=== PATIENT | male | born 1990 | race Caucasian/White ===

== ENCOUNTER 2017-08-31 10:09 | Emergency (ER) | payer SELFPAY ==
[2017-08-31 10:16] VITALS: BP 134/81; BMI 28.7
--- NOTE | 2017-08-31 11:00 | DR.GENAD ---
HPI - PCP Primary Care Physician: JAVIER Oconnell HPI Comment HPI Comment: close contact with flu - Complaint/Symptoms Chief Complaint:: PT STATES HE HAS SOME N/V SINCE 4AM. STATES HE HAS SOME BODY ACHES INCLUDING H/A AND SORE THROAT - Nurses notes reviewed Nurses Notes Review: Yes - Source History Provided: Patient - Mode of Arrival Mode of Arrival: Ambulatory - Timing Onset of Chief Complaint: 08/31/17 Came on: Gradually - Duration Duration: Since Onset - Severity Severity: Moderate PMH - PMH Past Medical History: No (no sig PMH) Past Surgical History: No Surgical History: No History - Family History History of Family Medical Conditions: Yes Family Medical History: Diabetes Mellitus, Cancer - Social History Does patient currently use any type of tobacco product: No Have you used tobacco products in the last 12 months: No Type of Tobacco Use: None Does any household member use tobacco: No Alcohol Use: None Do you use any recreational Drugs:: No Lives With: Family Lives Where: Home - infectious screening In the last 2 months have you had wt loss of >10#?: NO Have you had fever, night sweats or hemotysis?: No Have you traveled outside the country in the last 6 months?: No ROS - Review of Systems Constitutional: Chills, Fever, Fatigue Eyes: No Symptoms Reported ENTM: No Symptoms Reported, Throat Pain Respiratoy: Non-Productive Cough Cardiovascular: No Symptoms Reported Gastrointestinal/Abdominal: Nausea, Vomiting. negative: Diarrhea Genitourinary: No Symptoms Reported Neurological: Headache Musculoskeletal: Joint Pain, Muscle Pain Integumentary: No Symptoms Reported Endocrine: No Symptoms Reported Psychiatric: No Symptoms Reported All Other Systems: Reviewed and Negative PE - Vital Signs Vitals: Temperature 98.3 F Pulse Rate 81 Respiratory Rate 20 Blood Pressure [Right Arm] 136/80 Blood Pressure 134/81 O2 Sat by Pulse Oximetry 98 - General Limitations: No Limitations General Appearance: Alert, In No Apparent Distress - Head Head Exam: Normal Inspection - Eyes Eye exam: Normal Appearance - ENT ENT Exam: Normal Exam Throat Exam: Tonsillar Erythema - Neck Neck Exam: Normal Inspection, Full ROM, Trachea Midline. negative: Tenderness, Meningismus, Lymphadenopathy - Respiratory Respiratory Exam: Normal Lung Sounds Bilat Respiratory Exam: Bilateral Clear to Auscultation - Cardiovascular Cardiovascular Exam: Regular Rate, Normal Rhythm, Normal Heart Sounds. negative : Systolic Murmur, Diastolic Murmur - Abdominal Exam Abdominal Exam: Normal Inspection, Normal Bowel Sounds, Soft. negative: Tenderness, Guarding, Rebound - Neurologic Neurological Exam: Alert, Oriented X3 - Psychiatric Psychiatric Exam: Normal Affect, Normal Mood - Skin Skin Exam: Warm, Dry. negative: Rash ROR - Labs Reviewed Laboratory Results Reviewed?: Yes (flu -, strep -) Laboratory: Influenza Type A (PCR) Negative (NEGATIVE) 08/31/17 10:46 Influenza Type B (PCR) Negative (NEGATIVE) 08/31/17 10:46 S. pyogenes (TEM-PCR) Not detected (NOT DETECT) 08/31/17 10:46 - Diagnosis Discharge Problem: Gastroenteritis - Discharge Plan Disposition: 01 HOME, SELF-CARE Condition: Stable Prescriptions: Ondansetron [Zofran Odt] 4 mg PO Q8H PRN #12 tab PRN Reason: Nausea/Vomiting - Follow ups/Referrals Follow ups/Referrals: NFD,None [Primary Care Provider] - 3 days - Instructions
== END 2017-08-31 11:58 | disposition home or self-care (01) ==
LOC: ER 10:20
DX: K52.89 Other specified noninfective gastroenteritis and colitis (principal)
CPT/HCPCS: 87502; 87651; 99282